=== PATIENT | male | born 1985 | race Two or more races ===

== ENCOUNTER 2018-10-20 10:00 | Outpatient (CLI) | payer BC, MEDICARE ==
[~2018-10-20] VITALS: Ht 167.6 cm; Wt 86.7 kg
[2018-10-20] MEDS ORDERED: SODIUM CHLORIDE 0.9% 1,000 ML IV SCH (10:10)
[2018-10-20] MEDS ORDERED: CARV6.252 PO (10:14)
[2018-10-20] MEDS ORDERED: CALC667C PO (10:14)
[2018-10-20 10:26] VITALS: BP 153/92
== END 2018-10-20 11:00 | disposition home or self-care (01) ==
LOC: CLISVCS 10:00 → EDSTATUS 10:30 → OUT 11:00 → CLISVCS 11:00
PROVIDERS: ATTEND Surgery Vascular Surgery
DX: N19 Unspecified kidney failure (principal); Z53.9 Procedure and treatment not carried out, unspecified reason
CPT/HCPCS: 36415; 80047; 93005; J7030